=== PATIENT | female | born 1980 | race American Indian/Alaskan Native ===

== ENCOUNTER 2017-12-04 10:55 | Emergency (ER) | payer OTHER ==
[2017-12-04] MEDS ORDERED: NACL 0.9% 1000 ML 1,000 ML IV ONE (11:21)
[2017-12-04] MEDS ORDERED: BENADRYL IV ONE (11:21)
[2017-12-04] MEDS ORDERED: PEPCID IV ONE (11:21)
[2017-12-04] MEDS ORDERED: VANCOMYCIN/NS 1 GM/250 ML 1 GM/250 ML BAG IV ONE (11:25)
[2017-12-04] MEDS ORDERED: ZOFRAN ONE (11:32)
[2017-12-04] MEDS ORDERED: ZOFRAN IV ONE (11:35)
[2017-12-04] MEDS ORDERED: VANCOMYCIN 2,000 MG in NACL 0.9% 500 ML 500 ML IV ONE (12:00)
[2017-12-04] MEDS ORDERED: VANCOMYCIN PHARMACY TO DOSE IV SCH (12:00)
[2017-12-04 12:06] LABS: Basophils # (Auto) 0.1 K/mm3 (0.0-0.1); Basophils % (Auto) 0.6 % (0.0-1.8); Eosinophils # (Auto) 0.2 K/mm3 (0.0-0.4); Eosinophils % (Auto) 2.7 % (0.0-4.3); Hematocrit 38.4 % (30.3-42.9); Hemoglobin 12.8 gm/dl (10.1-14.3); Lymphocytes # (Auto) 2.5 K/mm3 (1.2-5.4); Lymphocytes % (Auto) 29.3 % (13.4-35.0); Mean Corpuscular HGB Conc 33 % (30-34); Mean Corpuscular Hemoglobin 27 pg (28-32); Mean Corpuscular Volume 83 fl (79-97); Monocytes # (Auto) 0.8 K/mm3 (0.0-0.8); Monocytes % (Auto) 9.8 % (0.0-7.3); Platelet Count 439 K/mm3 (140-440); Red Blood Count 4.65 M/mm3 (3.65-5.03); Red Cell Distribution Width 14.6 % (13.2-15.2)
[2017-12-04 12:27] LABS: Alanine Aminotransferase 7 units/L (7-56); Albumin 3.9 g/dL (3.9-5); BUN/Creatinine Ratio 13; Blood Urea Nitrogen 9 mg/dL (7-17); Hemolysis Index 0
--- NOTE | 2017-12-04 13:52 | Emergency Department Report ---
HPI - General Chief Complaint: Allergic Reaction Time Seen by Provider: 12/04/17 11:20 - HPI HPI: Patient reports ED Past Medical Hx - Past Medical History Previous Medical History?: Yes Additional medical history: Lupus, Fibromyalgia, Musle Spasm, Tachycardia, Hypotension, Thyroid Removed - Surgical History Additional Surgical History: Thyroidectomy - Social History Smoking Status: Never Smoker Substance Use Type: None - Medications Home Medications: Home Medications Medication Instructions Recorded Confirmed Last Taken Type EPINEPHrine [Epipen 2-Meet] 0.3 mg IJ ONCE PRN #1 auto.injct 12/04/17 Unknown Rx Famotidine [Pepcid] 20 mg PO Q12HR #10 tablet 12/04/17 Unknown Rx Sulfamethoxazole/Trimethoprim 1 each PO BID #14 tablet 12/04/17 Unknown Rx [Bactrim DS TAB] diphenhydrAMINE [Benadryl CAP] 50 mg PO QHS #5 capsule 12/04/17 Unknown Rx predniSONE [Deltasone] 40 mg PO QDAY 5 Days #10 tab 12/04/17 Unknown Rx ED Review of Systems ROS: Stated complaint: ALLERGIC REACTION TO BEE STING Other details as noted in HPI Physical Exam - Physical Exam Vital Signs: Vital Signs 12/04/17 12/04/17 12/04/17 11:05 11:12 11:30 Temperature 98 F Pulse Rate 127 H 122 H 122 H Respiratory 18 13 26 H Rate Blood Pressure 134/95 130/94 O2 Sat by Pulse 100 99 98 Oximetry 12/04/17 12:00 Temperature Pulse Rate 102 H Respiratory 14 Rate Blood Pressure 141/95 O2 Sat by Pulse 100 Oximetry ED Course Vital Signs 12/04/17 12/04/17 12/04/17 11:05 11:12 11:30 Temperature 98 F Pulse Rate 127 H 122 H 122 H Respiratory 18 13 26 H Rate Blood Pressure 134/95 130/94 O2 Sat by Pulse 100 99 98 Oximetry 12/04/17 12:00 Temperature Pulse Rate 102 H Respiratory 14 Rate Blood Pressure 141/95 O2 Sat by Pulse 100 Oximetry ED Medical Decision Making - Lab Data Result diagrams: 12/04/17 11:48 12/04/17 11:48 Critical care attestation.: If time is entered above; I have spent that time in minutes in the direct care of this critically ill patient, excluding procedure time. ED Disposition Clinical Impression: Preseptal cellulitis of left eye Allergic reaction Qualifiers: Encounter type: initial encounter Qualified Code(s): T78.40XA - Allergy, unspecified, initial encounter Cellulitis Qualifiers: Site of cellulitis: face Qualified Code(s): L03.211 - Cellulitis of face Disposition: - TO HOME OR SELFCARE Is pt being admited?: No Condition: Stable Instructions: Cellulitis (ED), Insect Bite or Sting (ED), Allergies (ED), Periorbital Cellulitis in Children (ED) Prescriptions: diphenhydrAMINE [Benadryl CAP] 50 mg PO QHS #5 capsule EPINEPHrine [Epipen 2-Meet] 0.3 mg IJ ONCE PRN #1 auto.injct PRN Reason: Allergy Symptoms Famotidine [Pepcid] 20 mg PO Q12HR #10 tablet predniSONE [Deltasone] 40 mg PO QDAY 5 Days #10 tab Sulfamethoxazole/Trimethoprim [Bactrim DS TAB] 1 each PO BID #14 tablet Referrals: PRIMARY CARE, [Primary Care Provider] - 2-3 Days Forms: Work/School Release Form(ED) Time of Disposition: 14:31
[2017-12-04 14:59] VITALS: BP 95/55
== END 2017-12-04 14:59 | disposition home or self-care (01) ==
LOC: ED 10:55
DX: T78.40XA Allergy, unspecified, initial encounter (principal); L03.213 Periorbital cellulitis; R00.0 Tachycardia, unspecified; E89.0 Postprocedural hypothyroidism; I95.9 Hypotension, unspecified; Z91.030 Bee allergy status; Z91.040 Latex allergy status; Z88.6 Allergy status to analgesic agent; Z88.4 Allergy status to anesthetic agent; X58.XXXA Exposure to other specified factors, initial encounter
CPT/HCPCS: 36415; 80053; 82140; 84484; 85025; 87040; 96365; 96375; 99283; J1200; J2405; J2930; J3370; J7030; J7040; 96366

== ENCOUNTER 2018-01-05 12:32 | Emergency (ER) | payer SELFPAY ==
[2018-01-05] MEDS ORDERED: BENADRYL PO ONE (14:06)
--- NOTE | 2018-01-05 14:07 | Emergency Department Report ---
ED General Adult HPI - General Chief complaint: Skin/Abscess/Foreign Body Stated complaint: BAD RASH Time Seen by Provider: 01/05/18 13:33 Source: patient, RN notes reviewed Mode of arrival: Ambulatory Limitations: No Limitations - History of Present Illness Initial comments: This is a 37-year-old female who is not known to this provider previously. Her past medical history includes lupus, thyroidectomy, reports currently being on Synthroid, obesity. Presents to the ER with a primary complaint of slightly itchy rash on her anterior chest wall. This was preceded by nonspecific myalgias and arthralgias. She denies headache, neck pain, chest pain, abdominal pain, shortness of breath, urinary symptoms. She feels like her lupus was slightly flaring up. It is now better. The rash does not radiate anywhere, and did not respond to Neosporin cream. -: Gradual Consistency: constant Improves with: none Worsens with: none Associated Symptoms: rash, other (see history of present illness). denies: confusion, chest pain, cough, diaphoresis, fever/chills, headaches, loss of appetite, malaise, nausea/vomiting, seizure, shortness of breath, syncope, weakness - Related Data Previous Rx's Medication Instructions Recorded Last Taken Type EPINEPHrine [Epipen 2-Meet] 0.3 mg IJ ONCE PRN #1 auto.injct 12/04/17 Unknown Rx Famotidine [Pepcid] 20 mg PO Q12HR #10 tablet 12/04/17 Unknown Rx Sulfamethoxazole/Trimethoprim 1 each PO BID #14 tablet 12/04/17 Unknown Rx [Bactrim DS TAB] diphenhydrAMINE [Benadryl CAP] 50 mg PO QHS #5 capsule 12/04/17 Unknown Rx predniSONE [Deltasone] 40 mg PO QDAY 5 Days #10 tab 12/04/17 Unknown Rx Calamine/Zinc Oxide [Calamine 177 ml TP BID PRN #1 lotion 01/05/18 Unknown Rx Lotion] diphenhydrAMINE [Benadryl] 50 mg PO Q8HR PRN #20 capsule 01/05/18 Unknown Rx Allergies Allergy/AdvReac Type Severity Reaction Status Date / Time bee venom protein (honey bee) Allergy Unknown Verified 01/05/18 12:36 diazepam [From Valium] Allergy Unknown Verified 01/05/18 12:36 hydromorphone [From Dilaudid] Allergy Unknown Verified 01/05/18 12:36 latex Allergy Unknown Verified 01/05/18 12:36 oxycodone Allergy Unknown Verified 01/05/18 12:36 tramadol Allergy Unknown Verified 01/05/18 12:36 ED Review of Systems ROS: Stated complaint: BAD RASH Other details as noted in HPI ED Past Medical Hx - Past Medical History Previous Medical History?: Yes Additional medical history: Lupus, Fibromyalgia, Musle Spasm, Tachycardia, Hypotension, Thyroid Removed - Surgical History Past Surgical History?: Yes Additional Surgical History: Thyroidectomy - Social History Smoking Status: Never Smoker Substance Use Type: None - Medications Home Medications: Home Medications Medication Instructions Recorded Confirmed Last Taken Type EPINEPHrine [Epipen 2-Meet] 0.3 mg IJ ONCE PRN #1 auto.injct 12/04/17 Unknown Rx Famotidine [Pepcid] 20 mg PO Q12HR #10 tablet 12/04/17 Unknown Rx Sulfamethoxazole/Trimethoprim 1 each PO BID #14 tablet 12/04/17 Unknown Rx [Bactrim DS TAB] diphenhydrAMINE [Benadryl CAP] 50 mg PO QHS #5 capsule 12/04/17 Unknown Rx predniSONE [Deltasone] 40 mg PO QDAY 5 Days #10 tab 12/04/17 Unknown Rx Calamine/Zinc Oxide [Calamine 177 ml TP BID PRN #1 lotion 01/05/18 Unknown Rx Lotion] diphenhydrAMINE [Benadryl] 50 mg PO Q8HR PRN #20 capsule 01/05/18 Unknown Rx ED Physical Exam - General Limitations: No Limitations General appearance: alert, in no apparent distress - Head Head exam: Present: atraumatic, normocephalic - Eye Eye exam: Present: normal appearance, EOMI. Absent: nystagmus - ENT ENT exam: Present: normal exam, normal orophraynx, mucous membranes moist, normal external ear exam - Neck Neck exam: Present: normal inspection, full ROM. Absent: tenderness, meningismus - Respiratory Respiratory exam: Present: normal lung sounds bilaterally, other (on the anterior chest wall, there are nontender papules in the anterior median chest wall. There is no redness, pus or streaking). Absent: respiratory distress, chest wall tenderness - Cardiovascular Cardiovascular Exam: Present: normal rhythm, tachycardia (patient reports that she has a resting sinus tachycardia, reports that her typical normal rate is 102 bpm), normal heart sounds. Absent: systolic murmur, diastolic murmur, rubs , gallop - GI/Abdominal GI/Abdominal exam: Present: soft, normal bowel sounds. Absent: distended, tenderness, guarding, pulsatile mass - Extremities Exam Extremities exam: Present: normal inspection, full ROM, normal capillary refill , other (2+ pulses noted in the bilateral upper, lower extremities. Compartments soft. No long bony tenderness. The pelvis is stable.). Absent: tenderness, joint swelling, calf tenderness - Back Exam Back exam: Present: normal inspection, full ROM. Absent: tenderness, CVA tenderness (R), vertebral tenderness - Neurological Exam Neurological exam: Present: alert, oriented X3, CN II-XII intact, normal gait, other (Extraocular movements intact. Tongue midline. No facial droop. Facial sensation intact to light touch in the V1, V2, V3 distribution bilaterally. 5 and 5 strength in 4 extremities.. Sensation is intact to light touch in 4 extremities.). Absent: motor sensory deficit - Psychiatric Psychiatric exam: Present: normal affect, normal mood - Skin Skin exam: Present: warm, dry, rash ED Course Vital Signs 01/05/18 01/05/18 01/05/18 12:36 14:16 15:06 Temperature 98.4 F Pulse Rate 114 H 102 H 102 H Respiratory 18 Rate Blood Pressure 123/76 Blood Pressure 112/62 [Right] O2 Sat by Pulse 99 Oximetry ED Medical Decision Making - Lab Data Result diagrams: 01/05/18 14:23 01/05/18 14:23 Vital Signs 01/05/18 01/05/18 01/05/18 12:36 14:16 15:06 Temperature 98.4 F Pulse Rate 114 H 102 H 102 H Respiratory 18 Rate Blood Pressure 123/76 Blood Pressure 112/62 [Right] O2 Sat by Pulse 99 Oximetry Lab Results 01/05/18 01/05/18 01/05/18 Range/Units 14:10 14:23 14:23 WBC 8.0 (4.5-11.0) K/mm3 RBC 4.37 (3.65-5.03) M/mm3 Hgb 11.8 (10.1-14.3) gm/dl Hct 36.0 (30.3-42.9) % MCV 82 (79-97) fl MCH 27 L (28-32) pg MCHC 33 (30-34) % RDW 14.4 (13.2-15.2) % Plt Count 404 (140-440) K/mm3 Sodium 140 (137-145) mmol/L Potassium 4.4 (3.6-5.0) mmol/L Chloride 104.5 (98-107) mmol/L Carbon Dioxide 24 (22-30) mmol/L Anion Gap 16 mmol/L BUN 9 (7-17) mg/dL Creatinine 0.7 (0.7-1.2) mg/dL Estimated GFR > 60 ml/min BUN/Creatinine Ratio 13 % Glucose 102 H (65-100) mg/dL Calcium 8.7 (8.4-10.2) mg/dL Urine Color Yellow (Yellow) Urine Turbidity Clear (Clear) Urine pH 6.0 (5.0-7.0) Ur Specific [place] 1.021 (1.003-1.030) Urine Protein <15 mg/dl (Negative) mg/dL Urine Glucose (UA) Neg (Negative) mg/dL Urine Ketones Neg (Negative) mg/dL Urine Blood Mod (Negative) Urine Nitrite Neg (Negative) Urine Bilirubin Neg (Negative) Urine Urobilinogen < 2.0 (<2.0) mg/dL Ur Leukocyte Esterase Neg (Negative) Urine WBC (Auto) 2.0 (0.0-6.0) /HPF Urine RBC (Auto) 12.0 (0.0-6.0) /HPF U Epithel Cells (Auto) < 1.0 (0-13.0) /HPF Urine Mucus 1+ /HPF Urine HCG, Qual Negative (Negative) - Medical Decision Making Differential diagnosis, including but not limited to: Prickly heat, lupus flare Assessment and plan: 37-year-old female who reports resolved lupus flare and nonspecific papular rash on her anterior chest wall. She is afebrile with reassuring vital signs, with a resting tachycardia that she states is normal for her. Her laboratory studies were unremarkable and her physical exam was otherwise unremarkable. She can apply warm compresses and calamine lotion as needed to the anterior chest wall rash. There does not appear to be an emergent condition at this time, and her rash does not appear to be consistent with dermatitis, syphilis, infection, or any other potentially dangerous etiology. She is medically suitable to follow-up in outpatient primary care doctor, pet groomer or medical lab specialist. Critical care attestation.: If time is entered above; I have spent that time in minutes in the direct care of this critically ill patient, excluding procedure time. ED Disposition Clinical Impression: Rash, History of lupus Disposition: TO HOME OR SELFCARE Is pt being admited?: No Does the pt Need Aspirin: No Condition: Good Additional Instructions: Follow up with any of the basic medical lab specialist within the next month. Dr. Luque is a local rehab specialist who he may also follow-up with within the next month. Take the medications as needed/directed. Apply warm compresses to the rash on the anterior chest wall. Discontinue Neosporin. Return to the ER right away with fevers, chills, lethargy, irritability, projectile vomiting, change in mental status,, inability to tolerate liquid feeds. Referrals: PRIMARY CARE, [Primary Care Provider] - 3-5 Days JEFF GIPSON MD [Referring] - 3-5 Days MALATHI CHAUDHARY MD [Referring] - 3-5 Days RAMA MONCADA MD [Referring] - 3-5 Days CHRISTOPHER BAJWA MD [Referring] - 3-5 Days LUIS FERNANDO BRANTLEY MD [Referring] - 3-5 Days STEVE OTOOLE DO [Referring] - 3-5 Days LUIS FERNANDO MUNIZ MD [Staff Physician] - 3-5 Days ANAYELI SAWYER MD [Referring] - 3-5 Days SHELL POWERS MD [Referring] - 3-5 Days GRAEME MANDUJANO MD [Referring] - 3-5 Days HILARIA BILLINGS MD [Referring] - 3-5 Days NORMA PANDYA MD [Referring] - 3-5 Days RICH LEÓN MD [Referring] - 3-5 Days TRACI LUQUE MD [Staff Physician] - 3-5 Days
[2018-01-05 14:17] VITALS: BP 112/62
[2018-01-05 14:34] LABS: Hemoglobin 11.8 gm/dl (10.1-14.3); Mean Corpuscular HGB Conc 33 % (30-34); Mean Corpuscular Hemoglobin 27 pg (28-32); Mean Corpuscular Volume 82 fl (79-97); Platelet Count 404 K/mm3 (140-440); Red Blood Count 4.37 M/mm3 (3.65-5.03); Red Cell Distribution Width 14.4 % (13.2-15.2)
[2018-01-05 14:35] LABS: Bilirubin,Urine NEG (Negative); Blood,Urine MOD (Negative); Color,Urine Yellow (Yellow); Mucus,Urine 1+ /HPF; Protein,Urine <15 mg/dL mg/dL (Negative); Urobilinogen,Urine < 2.0 mg/dL (<2.0)
[2018-01-05 14:36] LABS: HCG Qualitative,Urine Negative (Negative)
[2018-01-05] MEDS ORDERED: TOPROL XL PO ONE (15:00)
[2018-01-05 15:15] LABS: BUN/Creatinine Ratio 13; Blood Urea Nitrogen 9 mg/dL (7-17); Calcium 8.7 mg/dL (8.4-10.2); Hemolysis Index 6
== END 2018-01-05 15:43 | disposition home or self-care (01) ==
LOC: ED 12:32
DX: R21 Rash and other nonspecific skin eruption (principal); M32.9 Systemic lupus erythematosus, unspecified; M79.7 Fibromyalgia; E89.0 Postprocedural hypothyroidism; Z88.6 Allergy status to analgesic agent; Z88.4 Allergy status to anesthetic agent; Z91.030 Bee allergy status; Z91.040 Latex allergy status
CPT/HCPCS: 36415; 80048; 81001; 81025; 85027; 99283